=== PATIENT | male | born 1935 | race Two or more races ===

== ENCOUNTER 2020-12-26 08:00 | Outpatient (CLI) | payer OTHER ==
[~2020-12-26 08:00] MED LIST: ASPIR 8181 MG; HYDROCORTISONE28 G5 TP; LAMISIL250 MG; MEDROLPACK PO; SIMVASTATIN20 MG; TAMSULOSIN HCL0.4 MG; ZYRTEC10 M3 PO
== END 2020-12-26 08:30 | disposition home or self-care (01) ==
LOC: PPH VACUNA 08:00
PROVIDERS: ATTEND Emergency Medicine Pediatric Emergency Medicine
DX: Z23 Encounter for immunization (principal)

== ENCOUNTER 2021-01-30 07:17 | Outpatient (CLI) | payer OTHER | END 2021-01-30 07:22 | disposition home or self-care (01) | LOC: MRI 07:17 | PROVIDERS: ATTEND Neuromusculoskeletal Medicine & OMM | DX: F02.80 Dementia in other diseases classified elsewhere, unspecified severity, without behavioral disturbance, psychotic disturbance, mood disturbance, and anxiety (principal) | CPT/HCPCS: 70551 ==

== ENCOUNTER 2021-07-10 08:00 | Outpatient (CLI) | payer OTHER | END 2021-07-10 08:30 | disposition home or self-care (01) | LOC: PPH VACUNA 08:00 | PROVIDERS: ATTEND Emergency Medicine Pediatric Emergency Medicine | DX: Z23 Encounter for immunization (principal) ==

== ENCOUNTER 2021-10-21 10:18 | Outpatient (CLI) | payer OTHER | END 2021-10-21 10:29 | disposition home or self-care (01) | LOC: RAD 10:18 | PROVIDERS: ATTEND Orthopaedic Surgery | DX: M25.511 Pain in right shoulder (principal) ==

== ENCOUNTER 2021-12-03 14:44 | Outpatient (CLI) | payer OTHER | END 2021-12-03 14:49 | disposition home or self-care (01) | LOC: PPH VACUNA 14:44 | PROVIDERS: ATTEND Emergency Medicine Pediatric Emergency Medicine | DX: Z23 Encounter for immunization (principal) ==

== ENCOUNTER → 2022-01-01 | Outpatient (CLI) | payer OTHER | END | disposition home or self-care (01) | LOC: NUCLEAR 12-21 09:15 | PROVIDERS: ATTEND Internal Medicine Sports Medicine | DX: M81.0 Age-related osteoporosis without current pathological fracture (principal) ==

== ENCOUNTER 2022-01-12 15:05 | Outpatient (CLI) | payer OTHER | END 2022-01-12 15:13 | disposition home or self-care (01) | LOC: RAD 15:05 | PROVIDERS: ATTEND Orthopaedic Surgery | DX: M75.41 Impingement syndrome of right shoulder (principal) ==

== ENCOUNTER 2022-06-13 16:11 | Emergency (ER) | payer OTHER ==
[~2022-06-13] VITALS: Ht 154.9 cm; Wt 59.9 kg
[2022-06-13] MEDS ORDERED: LYRICA20 MG/1 ML PO (16:24)
== END 2022-06-13 19:38 | disposition home or self-care (01) ==
LOC: ER 16:11
DX: S49.81XA Other specified injuries of right shoulder and upper arm, initial encounter (principal); X50.9XXA Other and unspecified overexertion or strenuous movements or postures, initial encounter; Y93.9 Activity, unspecified; Y92.9 Unspecified place or not applicable; E78.00 Pure hypercholesterolemia, unspecified; N40.0 Benign prostatic hyperplasia without lower urinary tract symptoms

== ENCOUNTER 2022-06-21 07:27 | Outpatient (CLI) | payer OTHER ==
[~2022-06-21 07:27] MED LIST changes: +LYRICA20 MG/1 ML PO
== END 2022-06-21 07:41 | disposition home or self-care (01) ==
LOC: MRI 07:27
PROVIDERS: ATTEND Orthopaedic Surgery
DX: M25.511 Pain in right shoulder (principal); M25.562 Pain in left knee
CPT/HCPCS: 73218

== ENCOUNTER 2022-08-06 07:41 | Outpatient (CLI) | payer OTHER | END 2022-08-06 07:46 | disposition home or self-care (01) | LOC: RAD 07:41 | PROVIDERS: ATTEND Orthopaedic Surgery | DX: M25.511 Pain in right shoulder (principal) ==

== ENCOUNTER → 2022-08-17 | Outpatient (CLI) | payer OTHER | END | disposition home or self-care (01) | LOC: MRI 13:09 | PROVIDERS: ATTEND Orthopaedic Surgery | DX: M25.562 Pain in left knee (principal); M17.12 Unilateral primary osteoarthritis, left knee; M23.92 Unspecified internal derangement of left knee; M25.511 Pain in right shoulder | CPT/HCPCS: 73718 ==

== ENCOUNTER 2022-09-02 06:57 | Outpatient (CLI) | payer OTHER | END 2022-09-02 07:05 | disposition home or self-care (01) | LOC: LAB 06:57 | PROVIDERS: ATTEND Orthopaedic Surgery | DX: D64.89 Other specified anemias (principal); E88.89 Other specified metabolic disorders; D68.8 Other specified coagulation defects; N39.0 Urinary tract infection, site not specified; Z22.322 Carrier or suspected carrier of Methicillin resistant Staphylococcus aureus; I49.9 Cardiac arrhythmia, unspecified; I10 Essential (primary) hypertension ==

== ENCOUNTER 2022-09-02 07:34 | Outpatient (CLI) | payer OTHER | END 2022-09-02 07:41 | disposition home or self-care (01) | LOC: RAD 07:34 | PROVIDERS: ATTEND Orthopaedic Surgery | DX: Z76.89 Persons encountering health services in other specified circumstances (principal) ==

== ENCOUNTER 2022-09-10 07:40 | Outpatient (CLI) | payer OTHER | END 2022-09-10 07:42 | disposition home or self-care (01) | LOC: SONOGRAMA 07:40 | PROVIDERS: ATTEND Internal Medicine Gastroenterology | DX: R74.02 Elevation of levels of lactic acid dehydrogenase [LDH] (principal) ==

== ENCOUNTER 2023-01-11 10:57 | Emergency (ER) | payer OTHER ==
[~2023-01-11] VITALS: Ht 154.9 cm; Wt 56.7 kg
[2023-01-11 12:12] LABS: HEMOGLOBIN 14.1 g/dL (13-16.00); MEAN CELL VOLUME 90.5 fL (80.0-100.00); MEAN CORPUSCULAR HGB CONC 34.3 g/dl (32.0-36.0); PLATELET COUNT 188 K/uL (150-450); RED BLOOD COUNT 4.53 M/uL (4.00-6.00); RED CELL DISTRIBUTION WIDTH 14.5 % (11.5-14.5)
[2023-01-11 12:22] LABS: URINE APPEARANCE Clear; URINE BILIRRUBIN Negative (NEGATIVE); URINE BLOOD Negative; URINE COLOR Dark Yellow; URINE GLUCOSE Negative (NEGATIVE); URINE LEUKOCYTE Negative; URINE NITRATE Negative; URINE PROTEIN Trace (NEGATIVE)
[2023-01-11 12:25] LABS: URINE BACTERIA 177.6 uL (0.0-1933); URINE EPITHELIAL CELLS 8.9 uL (0.0-38.8); URINE RBC 10.7 uL (0.0-20.8); URINE WBC 7.8 uL (0.0-23.2)
[2023-01-11 12:37] LABS: CALCIUM 9.9 mg/dL (8.5-10.1); CREATININE SERUM 1.16 mg/dL (0.70-1.30); GFR 59.56; POTASSIUM 4.55 mEq/L (3.5-5.1)
[2023-01-11 12:44] LABS: INR 1.1; PARTIAL THROMBOPLASTIN TIME 26.2 SECONDS (22.0-34.0); PROTHROMBIN TIME 11.5 SECONDS (9.0-11.5)
== END 2023-01-11 14:02 | disposition home or self-care (01) ==
LOC: ER 10:57
PROVIDERS: General Practice
DX: R42 Dizziness and giddiness (principal); T50.904A Poisoning by unspecified drugs, medicaments and biological substances, undetermined, initial encounter; Z20.822 Contact with and (suspected) exposure to COVID-19

== ENCOUNTER 2023-01-13 07:09 | Outpatient (CLI) | payer OTHER | END 2023-01-13 07:13 | disposition home or self-care (01) | LOC: MRI 07:09 | PROVIDERS: ATTEND Neuromusculoskeletal Medicine & OMM | DX: I72.9 Aneurysm of unspecified site (principal); I65.1 Occlusion and stenosis of basilar artery; I65.09 Occlusion and stenosis of unspecified vertebral artery; I65.29 Occlusion and stenosis of unspecified carotid artery; Q28.2 Arteriovenous malformation of cerebral vessels; F09 Unspecified mental disorder due to known physiological condition; F03.90 Unspecified dementia, unspecified severity, without behavioral disturbance, psychotic disturbance, mood disturbance, and anxiety | CPT/HCPCS: 70544; 70551 ==

== ENCOUNTER 2023-04-01 07:42 | Outpatient (CLI) | payer OTHER | END 2023-04-01 07:47 | disposition home or self-care (01) | LOC: NUCLEAR 07:42 | PROVIDERS: ATTEND Internal Medicine | DX: I25.119 Atherosclerotic heart disease of native coronary artery with unspecified angina pectoris (principal); R06.00 Dyspnea, unspecified | CPT/HCPCS: 78452; 93017; A9500; J0153 ==

== ENCOUNTER 2023-12-21 07:26 | Outpatient (CLI) | payer OTHER | END 2023-12-21 07:30 | disposition home or self-care (01) | LOC: SONOGRAMA 07:26 | PROVIDERS: ATTEND Internal Medicine | DX: R74.01 Elevation of levels of liver transaminase levels (principal) ==

== ENCOUNTER 2024-01-30 13:04 | Outpatient (CLI) | payer OTHER | END 2024-01-30 13:06 | disposition home or self-care (01) | LOC: NUCLEAR 13:04 | PROVIDERS: ATTEND Orthopaedic Surgery | DX: M81.0 Age-related osteoporosis without current pathological fracture (principal) ==

== ENCOUNTER 2024-01-30 14:02 | Emergency (ER) | payer OTHER ==
[~2024-01-30] VITALS: Ht 152.4 cm; Wt 61.2 kg
[2024-01-30] MEDS ORDERED: KETOROLAC TROMETHAMINE 60 MG VIAL IM STA (16:40)
== END 2024-01-30 18:46 | disposition home or self-care (01) ==
LOC: ER 14:04
DX: S60.222A Contusion of left hand, initial encounter (principal); X58.XXXA Exposure to other specified factors, initial encounter; Y93.89 Activity, other specified; Y92.89 Other specified places as the place of occurrence of the external cause; Y99.9 Unspecified external cause status; Z85.46 Personal history of malignant neoplasm of prostate
CPT/HCPCS: 73130; 96372; 99283; J1885

== ENCOUNTER 2024-02-13 07:10 | Outpatient (CLI) | payer OTHER | END 2024-02-13 07:18 | disposition home or self-care (01) | LOC: MRI 07:10 | PROVIDERS: ATTEND Internal Medicine Gastroenterology | DX: R74.01 Elevation of levels of liver transaminase levels (principal); D64.9 Anemia, unspecified | CPT/HCPCS: 74183; Q9965; 74181 ==

== ENCOUNTER 2024-02-13 08:07 | Outpatient (CLI) | payer OTHER ==
[2024-02-13 09:31] LABS: CREATININE SERUM 0.8 mg/dL (0.70-1.30); GFR 91.23
== END 2024-02-13 08:08 | disposition home or self-care (01) ==
LOC: LAB 08:07
PROVIDERS: ATTEND Radiology Diagnostic Radiology
DX: R74.01 Elevation of levels of liver transaminase levels (principal)

== ENCOUNTER 2024-03-01 14:30 | Outpatient (CLI) | payer OTHER | END 2024-03-01 14:49 | disposition home or self-care (01) | LOC: MRI 14:30 | PROVIDERS: ATTEND Urology | DX: M51.86 Other intervertebral disc disorders, lumbar region (principal) | CPT/HCPCS: 72148 ==

== ENCOUNTER → 2024-04-21 07:10 | Outpatient (CLI) | payer OTHER ==
[2024-04-21 09:14] LABS: INR 1.08; PARTIAL THROMBOPLASTIN TIME 27.7 SECONDS (22.0-34.0); PROTHROMBIN TIME 11.7 SECONDS (9.0-11.5)
[2024-04-21 09:33] LABS: % SATURACION 23.8 % (20-50); ALBUMIN 3.7 gm/dL (3.4-5.0); BILIRUBIN TOTAL 0.69 mg/dL (0.3-1.2); CALCIUM 9.7 mg/dL (8.5-10.1); CREATININE SERUM 0.86 mg/dL (0.70-1.30); FERRITIN 40.3 NG/ML (26-388); GFR 83.92; GLOBULINA 3.8 G/DL (2.4-3.5); POTASSIUM 4.73 mEq/L (3.5-5.1); PROSTATIC SPECIFIC ANTIGEN 0.016 NG/ML (0.010-4.00); TOTAL PROTEIN 7.5 gm/dL (6.4-8.2)
[2024-04-21 09:38] LABS: HEMATOCRIT 31.2 % (39.0-48.0); HEMOGLOBIN 11.2 g/dL (13-16.00); MEAN CELL VOLUME 99.8 fL (80.0-100.00); MEAN CORPUSCULAR HEMOGLOBIN 35.7 pg (27.00-32.0); MEAN CORPUSCULAR HGB CONC 35.8 g/dl (32.0-36.0); PLATELET COUNT 206 K/uL (150-450); RED BLOOD COUNT 3.12 M/uL (4.00-6.00); RED CELL DISTRIBUTION WIDTH 13.3 % (11.5-14.5)
[2024-04-21 10:16] LABS: COL EPI 100 SECONDS (82-175)
[2024-04-21 13:15] LABS: FOLIC ACID > 20.00 ng/ml (4.78-20)
[2024-04-23 08:59] LABS: MANUAL PLATELET COUNT 386
[2024-04-23 09:00] LABS: PLATELET ESTIMATE NORMAL (NORMAL)
== END | disposition home or self-care (01) ==
LOC: LAB 07:10
PROVIDERS: ATTEND Internal Medicine Hematology & Oncology
DX: C61 Malignant neoplasm of prostate (principal); D68.32 Hemorrhagic disorder due to extrinsic circulating anticoagulants; D51.3 Other dietary vitamin B12 deficiency anemia; D50.8 Other iron deficiency anemias; R79.9 Abnormal finding of blood chemistry, unspecified; I10 Essential (primary) hypertension; R74.02 Elevation of levels of lactic acid dehydrogenase [LDH]; K76.89 Other specified diseases of liver; D63.1 Anemia in chronic kidney disease; D68.8 Other specified coagulation defects; E56.1 Deficiency of vitamin K; D69.1 Qualitative platelet defects; R97.0 Elevated carcinoembryonic antigen [CEA]

== ENCOUNTER 2024-07-18 14:32 | Outpatient (CLI) | payer OTHER | END 2024-07-18 14:37 | disposition home or self-care (01) | LOC: TOM 14:32 | PROVIDERS: ATTEND Otolaryngology | DX: J39.9 Disease of upper respiratory tract, unspecified (principal) ==

== ENCOUNTER 2024-08-01 14:28 | Outpatient (CLI) | payer OTHER | END 2024-08-01 14:33 | disposition home or self-care (01) | LOC: RAD 14:28 | PROVIDERS: ATTEND Orthopaedic Surgery | DX: M25.561 Pain in right knee (principal) ==

== ENCOUNTER 2024-09-10 11:30 | Emergency (ER) | payer OTHER ==
[~2024-09-10] VITALS: Ht 152.4 cm; Wt 59.0 kg
[2024-09-10] MEDS ORDERED: KETOROLAC TROMETHAMINE 60 MG VIAL IM STA (13:12)
[2024-09-10] MEDS ORDERED: KETOROLAC TROMETHAMINE 60 MG VIAL IM ONE (13:15)
== END 2024-09-10 15:44 | disposition home or self-care (01) ==
LOC: ER 11:30
DX: M25.512 Pain in left shoulder (principal)
CPT/HCPCS: 73030; 96372; 99283; J1885

== ENCOUNTER 2024-10-18 07:06 | Outpatient (CLI) | payer OTHER | END 2024-10-18 07:08 | disposition home or self-care (01) | LOC: SONOGRAMA 07:06 | PROVIDERS: ATTEND Internal Medicine | DX: S49.92XA Unspecified injury of left shoulder and upper arm, initial encounter (principal) ==

== ENCOUNTER 2024-11-16 07:07 | Outpatient (CLI) | payer OTHER | END 2024-11-16 07:08 | disposition home or self-care (01) | LOC: RAD 07:07 | PROVIDERS: ATTEND Orthopaedic Surgery | DX: M75.112 Incomplete rotator cuff tear or rupture of left shoulder, not specified as traumatic (principal) ==